=== PATIENT | male | born 1995 | race Caucasian/White ===

== ENCOUNTER 2024-03-21 20:18 | Emergency (ER) | payer OTHER ==
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
[2024-03-21 20:32] LABS: BASOPHILS # (AUTO) 0.1 10^3/uL (0.0-0.1); BASOPHILS % (AUTO) 1.1 %; EOSINOPHILS # (AUTO) 0.6 10^3/uL (0.0-0.7); EOSINOPHILS % (AUTO) 6.7 %; HCT - HEMATOCRIT 45.7 % (42.0-52.0); HGB - HEMOGLOBIN 15.3 g/dL (14.0-18.0); LYMPHOCYTES # (AUTO) 3.3 10^3/uL (1.5-3.5); LYMPHOCYTES % (AUTO) 40.3 %; MEAN CORPUSCULAR HEMOGLOBIN 29.1 pg (27.0-31.0); MEAN CORPUSCULAR HGB CONC 33.5 g/dL (32.0-36.0); MEAN CORPUSCULAR VOLUME 86.9 fL (80.0-94.0); MEAN PLATELET VOLUME 10.3 fL (7.4-11.4); MONOCYTES # (AUTO) 0.6 10^3/uL (0.0-1.0); MONOCYTES % (AUTO) 6.9 %; NEUTROPHILS # (AUTO) 3.7 10^3/uL (1.5-6.6); NEUTROPHILS % (AUTO) 44.5 %; PLT - PLATELET COUNT 393 10^3/uL (130-450); RED BLOOD COUNT 5.26 10^6/uL (4.70-6.10); WHITE BLOOD COUNT 8.3 x10^3/uL (4.8-10.8)
[2024-03-21] MEDS: SODIUM CHLORIDE 0.9% 1,000 ML IV STA (20:37)
[2024-03-21] MEDS: HYDROmorphone 1 MG/ML CARPUJECT IVP STA (20:38)
[2024-03-21] MEDS: KETOROLAC 15 MG/ML VIAL IM STA (20:38)
[2024-03-21] MEDS: ONDANSETRON 4 MG/2 ML VIAL IVP STA (20:38)
[2024-03-21] MEDS ORDERED: iohexoL-300 100 ML VIAL ONE (20:44)
[2024-03-21 20:49] LABS: ALBUMIN 4.6 g/dL (3.2-5.5); ALBUMIN/GLOBULIN RATIO 1.5 (1.0-2.2); ALKALINE PHOSPHATASE 63 IU/L (42-121); ALT ALANINE AMINOTRANSFERASE 25 IU/L (10-60); AST ASPARTATE AMINOTRANSFERASE 22 IU/L (10-42); BILIRUBIN,TOTAL 0.4 mg/dL (0.2-1.0); BUN - BLOOD UREA NITROGEN 11 mg/dL (6-20); CALCIUM 9.8 mg/dL (8.5-10.3); CARBON DIOXIDE - CO2 23 mmol/L (21-32); CHLORIDE 102 mmol/L (101-111); CREATININE 1.1 mg/dL (0.6-1.3); ETOH - ETHANOL < 10.0 mg/dL; GFR - MDRD 80 (>89); GLUCOSE 130 mg/dL (74-104); LIPASE 39 U/L (11-82); SODIUM 136 mmol/L (135-145); TOTAL PROTEIN 7.6 g/dL (6.4-8.9)
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
--- NOTE | 2024-03-21 21:45 | CT Report ---
PROCEDURE: Cervical Spine WO INDICATIONS: Neck trauma, midline tenderness TECHNIQUE: Noncontrast 3 mm thick sections acquired from the skull base to the T4 level. Sagittal and coronal r eformats were then constructed. For radiation dose reduction, the following was used: automated exp osure control, adjustment of mA and/or kV according to patient size. COMPARISON: None. FINDINGS: Image quality: Excellent. Bones: No fractures or dislocations. Visualized superior ribs are intact. Soft tissues: Prevertebral soft tissues are normal in thickness. No paravertebral hematomas. No ap ical pneumothoraces. IMPRESSION: No acute, displaced fracture or traumatic subluxation. Reviewed by: Denice Nguyen MD on 03/21/2024 9:43 PM PDT Approved by: Denice Nguyen MD on 03/21/2024 9:43 PM PDT Station ID: [email or web address]
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
[2024-03-21] MEDS: oxyCODONE/ACET 5/325 Prepack 4 PO STA (22:14)
[2024-03-21] MEDS: iohexoL-300 100 ML VIAL IVP ONE (22:36)
[2024-03-21 22:47] VITALS: BP 149/90; O2SAT 97
--- NOTE | 2024-03-21 23:05 | XRAY Report ---
PROCEDURE: Clavicle LT INDICATIONS: clavicle inj TECHNIQUE: 2 views of the clavicle were acquired. COMPARISON: None. FINDINGS: Bones: Mildly comminuted, impacted mid clavicle fracture with about 2.7 cm of overlapping fracture f ragments. No AC joint separation. Coracoclavicular interval is at the upper limits of normal to sligh tly enlarged. Glenohumeral joint appears intact. Soft tissues: No suspicious soft tissue calcifications or masses. IMPRESSION: Impacted mid shaft left clavicle fracture. Reviewed by: Denice Nguyen MD on 03/21/2024 11:04 PM PDT Approved by: Denice Nguyen MD on 03/21/2024 11:04 PM PDT Station ID: [email or web address]
== END 2024-03-21 22:48 | disposition home or self-care (01) ==
LOC: ED 20:18
DX: S42.022A Displaced fracture of shaft of left clavicle, initial encounter for closed fracture (principal); S22.42XA Multiple fractures of ribs, left side, initial encounter for closed fracture; S00.81XA Abrasion of other part of head, initial encounter; S00.31XA Abrasion of nose, initial encounter; V27.49XA Other motorcycle driver injured in collision with fixed or stationary object in traffic accident, initial encounter; Y92.488 Other paved roadways as the place of occurrence of the external cause
CPT/HCPCS: 36415; 70450; 71260; 72125; 73000; 74177; 80053; 82077; 83690; 85025; 96372; 96374; 99284; J1170; Q9967